=== PATIENT | male | born 2000 | race Caucasian/White ===

== ENCOUNTER 2020-10-15 11:21 | Emergency (ER) | payer OTHER, SELFPAY ==
[2020-10-15] VITALS (20 sets, daily range): BP systolic 95–141; BP diastolic 51–92; PULSE 78–125; RESP 12–24; TEMP 37.3; O2SAT 97–100
--- NOTE | 2020-10-15 11:27 | ECG_ITS ---
Measurements Intervals [place] Rate: 94 P: 23 SD: 124 QRS: 95 QRSD: 101 T: 64 QT: 352 QTc: 442 Interpretive Statements SINUS RHYTHM RIGHT AXIS DEVIATION BASELINE ARTIFACT- II, V3-V6 BORDERLINE ECG Electronically Signed On 10-15-2020 12:57:55 CDT by Nick Rice D.O.
--- NOTE | 2020-10-15 11:28 | ED.OVERDOSE ---
HPI - Overdose General Chief Complaint: Overdose Stated Complaint: insides on fire Time Seen by Provider: 10/15/20 11:27 History of Present Illness HPI Narrative: 19 yo male w/ unknown medical history brought in by EMS after overdose. He reportedly injected an unknown quatitiy of an unknown substance after being told that he was going to be arrested. He arrives to the ED yelling that his brain is melting and his insides burn. History is limited by intoxication/cpndition. Related Data Allergies Allergy/AdvReac Type Severity Reaction Status Date / Time No Known Allergies Allergy Unverified 02/18/19 17:04 Review of Systems Review of Systems: ROS unobtainable: Yes unobtainable due to mental status PMFSH Past Medical History Medical History ADHD Anxiety Bipolar disorder MRSA (methicillin resistant Staphylococcus aureus) Schizophrenia Surgical History Surgical History History of nasal surgery History of placement of ear tubes Family History Family History Mother Family history of mental disorder Depression Family history of hepatitis Family history of seizure disorder Other Diabetes mellitus Social History Social History Smoking status: Current every day smoker Second hand tobacco smoke exposure: No Alcohol intake: current Gender identity (if verbalized by the patient): Male Exam Const: General: alert Nutritional Appearance: well nourished Other: Diaphoretic. Moderate distress HENMT: Head: normal to inspection Mouth: Yes dry mucous membranes Eyes: Pupils: Equal, round and reactive pupils present Resp: Effort & Inspection: normal respiratory effort Auscultation: clear to auscultation bilaterally Cardio: Rate: tachycardic Rhythm: regular rhythm GI: GI Palp: Yes Soft to palpation Skin: General skin exam: normal color Neuro: General: moves all extremities Motor exam (neuro): 5/5 motor strength present throughout Extrem: General: normal to inspection Psych: Appearance: disheveled Speech and movement: Psychomotor agitation in speech present Affect: Anxious affect present Course Vital Signs Vital signs: Vital Signs Temperature 37.3 C 10/15/20 11:25 Pulse Rate 125 H 10/15/20 11:25 Respiratory Rate 18 10/15/20 11:25 Blood Pressure 141/64 H 10/15/20 11:25 Pulse Oximetry 97 10/15/20 11:25 Temperature 37.3 C 10/15/20 11:25 Pulse Rate 78 10/15/20 16:30 Respiratory Rate 15 10/15/20 16:30 Blood Pressure 121/70 10/15/20 16:30 Pulse Oximetry 100 10/15/20 16:30 MDM - Overdose MDM Narrative Medical decision making narrative: Most likely just reacting to amphetamines. I do not suspect that this was a true suicide attempt. If the police are concerned he can be placed on suicide watch. Differential Diagnosis Differential diagnosis: Likely cocaine intoxication, suicide attempt by multiple drug overdose, poisoning by opiate or related narcotic, drug overdose, acetaminophen overdose and other (amphetamines, panic attack, ) Medical Records Attestation: I reviewed the patient's medical records. Lab Data Attestation: I reviewed the patient's lab results. Result diagrams: 10/15/20 11:35 10/15/20 11:35 Labs: Lab Results 10/15/20 10/15/20 10/15/20 Range/Units 11:35 11:35 11:35 WBC 10.7 H (4.5-10.0) K/mm3 RBC 4.76 (4.6-6.20) M/mm3 Hgb 13.7 L (14.0-18.0) g/dL Hct 40.5 L (42.0-52.0) % MCV 85.1 (80-100) fl MCH 28.8 (26-34) pg MCHC 33.8 (32-36) g/dl RDW 13.0 (11.5-14.5) % Plt Count 531 H (150-375) k/mm3 MPV 9.1 (7.4-10.4) fl Immature Gran % (Auto) 0.1 (0-0.5) % Neut % (Auto) 51.8 (45.5-73.1) % Lymph % (Auto) 36.6 (18.3-44.2) % [place] % (Auto)
[2020-10-15 11:48] LABS: Basophils Absolute Auto 0.1 K/mm3 (0.0-0.1); Basophils Percent Auto 0.8 % (0.2-1.2); Eosinophils Absolute Auto 0.2 K/mm3 (0-0.3); Eosinophils Percent Auto 2.1 % (0-4.4); Hematocrit 40.5 % (42.0-52.0); Hemoglobin 13.7 g/dL (14.0-18.0); Immature Granulocyte Absolute 0.01 K/mm3 (0.00-0.031); Immature Granulocyte Percent A 0.1 % (0-0.5); Lymphocytes Absolute Auto 3.92 K/mm3 (0.9-3.2); Lymphocytes Percent Auto 36.6 % (18.3-44.2); Mean Corpuscular HGB Conc 33.8 g/dl (32-36); Mean Corpuscular Hemoglobin 28.8 pg (26-34); Mean Corpuscular Volume 85.1 fl (80-100); Mean Platelet Volume 9.1 fl (7.4-10.4); Monocytes Absolute Auto 0.9 K/mm3 (0.1-0.6); Monocytes Percent Auto 8.6 % (2.6-8.5); Neutrophils Absolute Auto 5.5 K/mm3 (1.3-6.7); Neutrophils Percent Auto 51.8 % (45.5-73.1); Platelet Count Result 531 k/mm3 (150-375); Red Blood Count 4.76 M/mm3 (4.6-6.20); White Blood Count 10.7 K/mm3 (4.5-10.0)
[2020-10-15] MEDS: LORazepam INJ (*CRX) 2 MG/ML VIAL IV PUSH (11:52)
[2020-10-15 11:58] LABS: Alanine Aminotransferase 22 U/L (4-50); Albumin Level 4.6 g/dL (3.5-5.1); Alkaline Phosphatase 88 U/L (38-126); Anion Gap 12 mmol/L (8-16); Aspartate Amino Transferase 32 U/L (17-59); Bilirubin,Total 1.2 mg/dL (0.2-1.3); Blood Urea Nitrogen 19 mg/dL (9-20); Calcium 9.4 mg/dL (8.4-10.2); Carbon Dioxide 24 mmol/L (22-30); Chloride 108 mmol/L (98-107); Estimated CRCL calculation 68 ml/min; Estimated Glomerular Filt Rate 59; Glucose 107 mg/dL (65-110); Potassium 4.2 mmol/L (3.4-5.0); Sodium 144 mmol/L (137-145)
[2020-10-15 11:59] LABS: Acetaminophen < 10 ug/mL (10-30); Ethanol < 10 mg/dL (<10); Salicylate < 1.0 mg/dL (2-20)
--- NOTE | 2020-10-15 12:03 | PC.NURSE ---
pt sound asleep after ativan iv. unable to continue assessment
[2020-10-15 12:10] LABS: Troponin I < 0.012 ng/mL (0.000-0.034)
[2020-10-15 12:34] LABS: Add Urine Microscopic? YES; Appearance Urine Cloudy (Clear); Bilirubin Urine Negative (Negative); Blood Urine 3+ (Negative); Color Urine Amber (Yellow); Glucose Urine UA Negative (Negative); Ketones Urine Negative (Negative); Leukocyte Esterase Ur 1+ LEU/UL (Negative); Mucus Urine Moderate /lpf; Nitrate Urine Negative (Negative); Protein Urine 2+ mg/dL (Negative); RBC Urine >75 /hpf (0-2); Squamous Epithelial Cell Urine Rare /hpf (Few); WBC Urine 51-75 /hpf
[2020-10-15 12:36] LABS: Specific Grav Ur 1.032 (1.001-1.035)
[2020-10-15 12:47] LABS: Barbiturate Screen Urine Negative (Negative); Benzodiazepines Screen Urine Negative (Negative)
--- NOTE | 2020-10-15 13:21 | PC.NURSE ---
remains sedated. no resp distress. vitals stable. rails up x 2. light in reach. officer has left facility
[2020-10-15 13:41] LABS: Amphetamine Screen Urine Positive (Negative); Cannabinoid Screen Urine Positive (Negative); Cocaine Screen Urine Negative (Negative); Methadone Screen Urine Negative (Negative); Opiate Screen Urine Negative (Negative); Phencyclidine Screen Urine Negative (Negative)
[2020-10-15] MEDS: NALOXONE HCL 0.4 MG/ML VIAL 1 MG IM (15:19)
--- NOTE | 2020-10-15 16:09 | PC.NURSE ---
pt scooted up in bed when asked. pt stated ok when nurse told him that she would return shortly to check on him. pt did not open eyes during this conversation. vitals stable without resp distress. ed physician made aware that pt beginning to wake up. will call police at this time for transport back to [facility]
--- NOTE | 2020-10-15 16:27 | PC.NURSE ---
pt now awake sitting up drinking water. stable without distress. iv d/c intact. police on way
== END 2020-10-15 16:49 ==
PROVIDERS: Emergency Provider Emergency Medicine
DX: F15.10 Other stimulant abuse, uncomplicated (principal); Z86.14 Personal history of Methicillin resistant Staphylococcus aureus infection; F17.200 Nicotine dependence, unspecified, uncomplicated; R94.31 Abnormal electrocardiogram [ECG] [EKG]
CPT/HCPCS: 36415; 51701; 80053; 80307; 81001; 84443; 84484; 85025; 87086; 93005; 96372; 96374; 99284; J2060; J2310

== ENCOUNTER 2021-04-18 11:31 | Emergency (ER) | payer OTHER, SELFPAY ==
[2021-04-18] VITALS (7 sets, daily range): BP systolic 107–110; BP diastolic 69–70; PULSE 64–86; RESP 10–26; O2SAT 75–100
--- NOTE | 2021-04-18 11:41 | PC.NURSE ---
Narcan that was administered prior to arrival at: 1st dose: 1053 2nd dose: 1057
--- NOTE | 2021-04-18 11:44 | ED.GENADULT ---
HPI - General Adult General Chief complaint: Overdose Stated complaint: fentanyl od Time Seen by Provider: 04/18/21 11:39 History of Present Illness HPI narrative: 20-year-old male presented to the emergency department for evaluation of an accidental overdose. Patient was in police custody when he took 3 buttons of fentanyl and became unresponsive. Upon arrival to the [facility] patient was treated with 2 doses of 4 mg intranasal Narcan. In response to this patient did become more alert and appropriate. Last dose of Narcan was given at 1057. Upon arrival to the emergency department patient is alert appropriate denies any complaints. Patient denies frequent use of opioids. Patient states he does use meth frequently. Patient denies any suicidal intent with this ingestion. Patient states he was trying to avoid getting caught with the drugs. Related Data Allergies Allergy/AdvReac Type Severity Reaction Status Date / Time No Known Allergies Allergy Unverified 02/18/19 17:04 Review of Systems Review of Systems: CONSTITUTIONAL: Denies fever, chills, or sweats. EYES: Denies visual changes, redness, or discharge. ENT: Denies rhinorrhea, congestion, sore throat, or otalgia. CARDIOVASCULAR: Denies chest pain, palpitations, or edema. RESPIRATORY: Denies cough or dyspnea. GASTROINTESTINAL: Denies abdominal pain, nausea, vomiting, or diarrhea. GENITOURINARY: Denies dysuria or hematuria. SKIN: Denies rash or itching. MUSCULOSKELETAL: Denies back pain, joint pain, or myalgia. NEUROLOGIC: Denies headache, numbness, or weakness. PSYCHIATRIC: Denies anxiety or depression. All systems reviewed & are unremarkable except as noted in HPI and below PMFSH Past Medical History Medical History ADHD Anxiety Bipolar disorder MRSA (methicillin resistant Staphylococcus aureus) Schizophrenia Surgical History Surgical History History of nasal surgery History of placement of ear tubes Family History Family History Mother Family history of mental disorder Depression Family history of hepatitis Family history of seizure disorder Other Diabetes mellitus Social History Social History Smoking status: Current every day smoker Second hand tobacco smoke exposure: No Alcohol intake: current Gender identity (if verbalized by the patient): Male Exam Narrative: APPEARANCE: Well appearing, no pain, no distress, well-nourished. HEAD: normocephalic, atraumatic. EYES: PERRLA/EOMI, conjunctivae clear. NOSE: Normal no drainage THROAT: Pharynx clear, no exudate. NECK: Supple. No adenopathy, no masses. RESPIRATORY: Airway patent, respirations nonlabored. Clear to auscultation bilaterally, no rales, rhonchi, wheezing. CARDIOVASCULAR: Regular rate and rhythm without murmurs rubs or gallops. ABDOMINAL: Soft, nontender, nondistended, normal bowel sounds MUSCULOSKELETAL: Moves all extremities. Strength/ROM intact, No edema, No calf tenderness. NEURO: Alert. Cranial nerves II through XII intact. SKIN: Warm, dry. Normal Color PSYCHIATRIC: Normal affect/mood. Course Reevaluation(s) Reevaluation #1: On reevaluation patient is alert and oriented. Patient is eating and drinking. Patient denies any complaints at this time. Patient is stable for discharge back to [facility]. Vital Signs Vital signs: Vital Signs Pulse Rate 86 04/18/21 11:32 Respiratory Rate 14 04/18/21 11:32 Blood Pressure 110/70 04/18/21 11:32 Pulse Oximetry 100 04/18/21 11:32 Pulse Rate 64 04/18/21 13:24 Respiratory Rate 16 04/18/21 13:24 Blood Pressure 107/69 04/18/21 11:45 Pulse Oximetry 100 04/18/21 13:24 Medical Decision Making Vital Signs Vital Signs: Vital Signs Pulse Rate 86 04/18/21 11:32 Respiratory Rate 14 04/18/21
[2021-04-18] MEDS: ONDANSETRON HCL ODT 4 MG TABLET PO (12:01)
[2021-04-18] MEDS: ACETAMINOPHEN 500 MG TABLET 1000 MG PO (12:01)
== END 2021-04-18 13:18 | disposition home or self-care (01) ==
PROVIDERS: Emergency Provider Emergency Medicine
DX: T40.411A Poisoning by fentanyl or fentanyl analogs, accidental (unintentional), initial encounter (principal); Z86.14 Personal history of Methicillin resistant Staphylococcus aureus infection; F17.200 Nicotine dependence, unspecified, uncomplicated
CPT/HCPCS: 99283; A9270